=== PATIENT | female | born 1960 | race African-American/Black ===

== ENCOUNTER 2016-12-10 06:40 | Day surgery (SDC) | payer OTHER ==
[~2016-12-10] VITALS: Ht 170.2 cm; Wt 105.0 kg
[~2016-12-10 06:40] MED LIST: ALPR0.25 PO; ATRO0.05 EACH EYE; CARD120T4 PO; COZA100T PO; ESTR42.5V PV; FOLI5CAP PO; GLUCTAB PO; HYDR200T3 PO; LOVA1TAB47 PO; MEDR10 PO; METH2.5 PO; NEUR600T PO; NRSS SQ; PERC5TAB12 PO; PRED1%O EACH EYE; PROT40TA PO; PROZ40CA PO; SUCR1S PO; TIMO0.5S29 EACH EYE; TRAM100T19 PO; TYLE3 PO
[2016-12-10 07:00] VITALS: BP 150/88; PULSE 87; RESP 20; TEMP 98.7; O2SAT 98
[2016-12-10] MEDS ORDERED: TIMO0.5S30 EACH EYE (07:18)
[2016-12-10] MEDS ORDERED: TRAM50TA PO (07:18)
[2016-12-10] MEDS ORDERED: HYDR-3516 PO (07:18)
[2016-12-10] MEDS ORDERED: METH2.5T PO (07:18)
[2016-12-10] MEDS ORDERED: METF500T PO ×2 (07:18)
[2016-12-10] MEDS ORDERED: MEDR5TAB3 PO (07:18)
[2016-12-10] MEDS ORDERED: ALPR0.25 PO (07:18)
[2016-12-10] MEDS ORDERED: PRED20 PO (07:18)
[2016-12-10] MEDS ORDERED: LOVA20TA PO (07:18)
[2016-12-10] MEDS ORDERED: DORZ2SOL EACH EYE (07:18)
[2016-12-10] MEDS ORDERED: DILT-60 PO (07:18)
[2016-12-10] MEDS ORDERED: TRAV0.00 RIGHT EYE (07:18)
[2016-12-10] MEDS ORDERED: GABA600T PO (07:18)
[2016-12-10] MEDS ORDERED: ATRO1SOL11 EACH EYE (07:18)
[2016-12-10] MEDS ORDERED: CYCL1TAB29 PO (07:18)
[2016-12-10] MEDS ORDERED: ESTR0.1D3 T-DERMAL (07:18)
[2016-12-10] MEDS ORDERED: PANT40TA3 PO (07:18)
[2016-12-10] MEDS ORDERED: TYLETAB34 PO (07:18)
[2016-12-10] MEDS ORDERED: CENTTAB PO (07:18)
[2016-12-10] MEDS ORDERED: [UNRECOGNIZED DRUG - CODE] SL (07:18)
[2016-12-10] MEDS ORDERED: FOLI1TAB4 PO (07:18)
[2016-12-10] MEDS ORDERED: HYDR12.57 PO (07:18)
[2016-12-10] MEDS ORDERED: NOVORP2 SQ (07:18)
[2016-12-10] MEDS ORDERED: FLUO40CA PO (07:18)
[2016-12-10] MEDS ORDERED: BRIM0.155 EACH EYE (07:18)
[2016-12-10] MEDS ORDERED: ATEN50TA PO (07:18)
[2016-12-10] MEDS ORDERED: LOSA100T PO (07:18)
[2016-12-10] MEDS ORDERED: SULF10SU3 EACH EYE (07:18)
[2016-12-10 07:47] LABS: AUTOMATED NEUTROPHIL # 7.4 TH/MM3 (1.8-7.7); BASOPHIL # 0.1 TH/MM3 (0-0.2); BASOPHIL % 0.6 % (0.0-2.0); EOSINOPHIL # 0.1 TH/MM3 (0-0.4); EOSINOPHIL % 0.5 % (0.0-4.0); HEMATOCRIT 36.6 % (35.0-46.0); LYMPHOCYTE # 5.4 TH/MM3 (1.0-4.8); MEAN CELL VOLUME 87.4 FL (80.0-100.0); MEAN CORPUSCULAR HEMOGLOBIN 28.7 PG (27.0-34.0); MEAN CORPUSCULAR HGB CONC 32.9 % (32.0-36.0); MONO % 6.6 % (0.0-8.0); NEUT % 53.3 % (16.0-70.0); PLATELET COUNT 240 TH/MM3 (150-450); RED BLOOD COUNT 4.19 MIL/MM3 (4.00-5.30); RED CELL DISTRIBUTION WIDTH 15.1 % (11.6-17.2); WHITE BLOOD COUNT 13.8 TH/MM3 (4.0-11.0)
[2016-12-10 07:50] LABS: HEMO FLAGS AUTO DIFF
[2016-12-10] MEDS ORDERED: POVIDONE IODINE 5% (ANTISEPSIS KIT) 4 APPLICATIONS EACH NARE SCH (08:00)
[2016-12-10] MEDS ORDERED: VANCOMYCIN 1000 MG/NS 250 ML - implanted port/tunneled catheter IV SCH ×2 (08:00)
[2016-12-10] MEDS ORDERED: CHLORHEXIDINE GLUCONATE 2 % 1 PACK (2 CLOTHS) TOPICAL SCH (08:00)
[2016-12-10] MEDS ORDERED: SODIUM CHLORIDE 0.9% 1000 ML IV SCH (08:00)
[2016-12-10 08:04] LABS: APTT (PATIENT) 19.8 SEC (24.3-30.1); INTERNATIONAL NORMALIZED RATIO 0.9 RATIO; PROTHROMBIN TIME - PATIENT 10.4 SEC (9.8-11.6)
[2016-12-10] MEDS: ceFAZolin 2 GM PREMIX 50 ML - implanted port/tunneled catheter insertion IV SCH ×2 (08:24→09:44)
[2016-12-10 08:31] LABS: NEUTROPHIL # MANUAL DIFF 7.3 TH/MM3 (1.8-7.7); PLATELET ESTIMATE SMEAR NORMAL (NORMAL); PLATELET MORPHOLOGY NORMAL (NORMAL); POLYS (SEG NEUTROPHILS) 53 % (16-70); SCAN/DIFF FINAL DIFF MANUAL; WBC DIFF SAMPLE 100
[2016-12-10] MEDS ORDERED: MIDAZOLAM HCL 5 MG/5 ML VIAL ONE (08:44)
[2016-12-10] MEDS ORDERED: fentaNYL CITRATE 250 MCG/5 ML AMP ONE (08:44)
[2016-12-10] MEDS ORDERED: LIDOCAINE 1%/EPINEPHrine 1:100,000 SOLN 20 ML VIAL ONE (09:31)
--- NOTE | 2016-12-10 10:40 | PD.RAD ---
Post Procedure Progress Note Pre Procedure Diagnosis: (1) Iritis of both eyes Post Procedure Diagnosis: (1) Iritis of both eyes Procedure Date: Dec 10, 2016 Supervising Radiologist: Jigar Kaye Proceduralist/Assist: Matilde Gudino RT(R), Maryam Carey RT(R)() Anesthesia: Local, Conscious Sedation Plan of Activity Patient to Unit: ROPU Patient Condition: Good See PACS Report for procedural detail/treatment Central Venous Access Device Procedure 1 Right Internal Jugular Infusaport Placement single lumen Panamanian: 8 Jigar Kaye MD Dec 10, 2016 10:40
[2016-12-10 10:45] VITALS: BP 144/73; PULSE 83; RESP 16; TEMP 99.1; O2SAT 90
[2016-12-10 11:00] VITALS: BP 145/75; PULSE 85; RESP 18; O2SAT 97
[2016-12-10 11:30] VITALS: BP 126/71; PULSE 78; RESP 18; O2SAT 97
[2016-12-10 12:00] VITALS: BP 143/78; PULSE 81; RESP 18; O2SAT 98
--- NOTE | 2016-12-10 12:49 | RADRPT ---
EXAM DATE/TIME: 12/10/2016 09:50 [facility] COMPARISON: No previous studies available for comparison. INDICATIONS : Patient with chronic bilateral iritis in need of port for termite treater helper medication. MEDICAL HISTORY : Spondylosis of lumbosacral region Bilateral edema Diabetes HTN SURGICAL HISTORY : Left foot FX Bilateral knees Appendectomy Cholecystectomy Hysterectomy ENCOUNTER: Initial ACUITY: >1 year PAIN SCORE: FLUORO TIME: 4.8 minutes SEDATION TIME: 30 minutes ACCESS: Right internal jugular vein SEDATION: 1.) 5 mg midazolam (Versed) IV 2.) 250 mcg fentanyl (Sublimaze) IV Prophylactic antibiotics were administered with appropriate pre-procedure timing. Vancomycin within 2 hours of procedure, Ancef (or alternative) within 1 hour of procedure. DEVICE: 1. 8 [place] single lumen [id number] PROCEDURE : 1. Continuous pulse oximetry and EKG monitoring. 2. Intravenous conscious sedation. 3. Ultrasound guidance for venous access. 4. Fluoroscopic guided implantable central venous port placement. The patient was placed supine. The neck was prepped in sterile fashion. Full sterile technique was u sed, including cap, mask, sterile gloves and gown, and a large sterile sheet. Hand hygiene and 2% ch lorhexidine Betadine was utilized per protocol for cutaneous antisepsis with appropriate dry time for site. The skin and subcutaneous tissues were infiltrated with local anesthetic solution. Under direct ultrasound guidance, central venous access was accomplished in the targeted vessel. The ultrasound images depicting access guidance were stored and saved to PACS for permanent record. A s ubcutaneous pocket was created using blunt dissection. The port was introduced to the pocket. The c atheter tubing was fed through a subcutaneous tunnel to the venotomy site. The catheter tubing was c ut to a suitable length and then was introduced through a valved Peel-Away sheath and positioned with catheter tubing tip at the cavo-atrial junction level. The pocket incision was closed with subcutic ular Vicryl suture. Steri-Strips were applied. The port was flushed and locked with heparin solutio n per protocol. Sterile dressing was applied to the site. The patient tolerated the procedure well. Conscious sedation was performed with the prescribed dosages and duration as above. The patient autumn ated the procedure well and there were no complications. EKG and oximetry remained stable throughout the procedure. The patient was sent to post anesthesia recovery in stable condition. CONCLUSION: Uncomplicated ultrasound and fluoroscopic guided implanted central venous port catheter placement as described in detail above. An 8 [place] Power port was placed. Jigar Kaye MD on December 10, 2016 at 12:48 Board Certified Radiologist. This report was verified electronically.
[2016-12-10 13:00] VITALS: BP 149/79; PULSE 81; RESP 18; O2SAT 98
[2017-03-28] MEDS ORDERED: SITA50 PO (07:30)
[2017-03-28] MEDS ORDERED: INFL100P (07:32)
[2017-03-28] MEDS ORDERED: B-COINJ (07:34)
[2017-05-17] MEDS ORDERED: DILT360C12 PO (10:45)
[2017-05-17] MEDS ORDERED: CYAN1000P IM (10:45)
[2017-05-17] MEDS ORDERED: INFL100P IV (10:45)
[2017-05-17] MEDS ORDERED: HYDR25TA5 PO (10:45)
[2017-05-17] MEDS ORDERED: FOLI400T PO (10:45)
[2017-05-17] MEDS ORDERED: PRED10 PO (10:45)
[2017-05-17] MEDS ORDERED: ESTR0.1D3 T-DERMAL (10:45)
[2017-05-17] MEDS ORDERED: METH0.35 SQ (10:45)
[2017-05-17] MEDS ORDERED: MULTTAB67 PO (10:45)
== END 2016-12-10 13:10 | disposition home or self-care (01) ==
LOC: HROP 06:40 → HRIP 06:40 → HROP 13:10
PROVIDERS: ATTEND Internal Medicine Rheumatology
DX: H20.9 Unspecified iridocyclitis (principal); I10 Essential (primary) hypertension; E11.9 Type 2 diabetes mellitus without complications; R60.9 Edema, unspecified; M47.9 Spondylosis, unspecified; R79.1 Abnormal coagulation profile
CPT/HCPCS: 36561; 76942; 77001; 85007; 85027; 85610; 85730; 99152; 99153; J0690; J1642; J2250; J3010; J3370; J7030; J7050; C1788

== ENCOUNTER → 2016-12-13 | Outpatient (CLI) | payer OTHER ==
[~2016-12-13] MED LIST changes: +ATEN50TA PO; -ATRO0.05 EACH EYE; +ATRO1SOL11 EACH EYE; +B-COINJ; +BRIM0.155 EACH EYE; -CARD120T4 PO; +CENTTAB PO; -COZA100T PO; +CYAN1000P IM; +CYCL1TAB29 PO; +DILT-60 PO; +DILT360C12 PO; +DORZ2SOL EACH EYE; +ESTR0.1D3 T-DERMAL; -ESTR42.5V PV; +FLUO40CA PO; +FOLI1TAB4 PO; +FOLI400T PO; -FOLI5CAP PO; +GABA600T PO; -GLUCTAB PO; +HYDR-3516 PO; +HYDR12.57 PO; -HYDR200T3 PO; +HYDR25TA5 PO; +INFL100P; +INFL100P IV; +LOSA100T PO; -LOVA1TAB47 PO; +LOVA20TA PO; -MEDR10 PO; +MEDR5TAB3 PO; +METF500T PO; +METH0.35 SQ; -METH2.5 PO; +METH2.5T PO; +MULTTAB67 PO; -NEUR600T PO; +NOVORP2 SQ; -NRSS SQ; +PANT40TA3 PO; -PERC5TAB12 PO; -PRED1%O EACH EYE; +PRED10 PO; +PRED20 PO; -PROT40TA PO; -PROZ40CA PO; +SITA50 PO; -SUCR1S PO; +SULF10SU3 EACH EYE; -TIMO0.5S29 EACH EYE; +TIMO0.5S30 EACH EYE; -TRAM100T19 PO; +TRAM50TA PO; +TRAV0.00 RIGHT EYE; -TYLE3 PO; +TYLETAB34 PO; +[UNRECOGNIZED DRUG - CODE] SL
[2016-12-13 13:02] LABS: CHLORIDE 104 MEQ/L (98-107); POTASSIUM 4.4 MEQ/L (3.5-5.1); SODIUM (NA) 142 MEQ/L (136-145)
[2016-12-13 13:06] LABS: ANION GAP 8 MEQ/L (5-15); BICARBONATE 30.4 MEQ/L (21.0-32.0)
[2016-12-13 13:07] LABS: BLOOD UREA NITROGEN 12 MG/DL (7-18)
[2016-12-13 13:09] LABS: ALT (GPT) 48 U/L (10-53)
[2016-12-13 13:10] LABS: AST (GOT) 14 U/L (15-37); GLOMERULAR FILTRATION RATE 81 ML/MIN (>89)
[2016-12-13 13:11] LABS: TOTAL BILIRUBIN ADULT 0.3 MG/DL (0.2-1.0)
[2016-12-13 13:12] LABS: ALKALINE PHOSPHATASE 76 U/L (45-117)
[2016-12-13 15:35] LABS: HEMATOCRIT 35.4 % (35.0-46.0); MEAN CELL VOLUME 88.5 FL (80.0-100.0); MEAN CORPUSCULAR HEMOGLOBIN 28.1 PG (27.0-34.0); MEAN CORPUSCULAR HGB CONC 31.7 % (32.0-36.0); PLATELET COUNT 178 TH/MM3 (150-450); RED BLOOD COUNT 3.99 MIL/MM3 (4.00-5.30); RED CELL DISTRIBUTION WIDTH 15.2 % (11.6-17.2); REVIEW FLAG FINAL; WHITE BLOOD COUNT 11.7 TH/MM3 (4.0-11.0)
[2016-12-13 16:01] LABS: WESTERGREN SEDIMENTATION RATE 11 mm/hr (0-30)
== END ==
LOC: PLAB 10:39
PROVIDERS: ATTEND Internal Medicine Rheumatology
DX: H44.113 Panuveitis, bilateral (principal); H20.13 Chronic iridocyclitis, bilateral
CPT/HCPCS: 36415; 80053; 85027; 85652

== ENCOUNTER → 2017-01-21 | Outpatient (CLI) | payer OTHER ==
[2017-01-21 07:42] LABS: AUTOMATED NEUTROPHIL # 7.2 TH/MM3 (1.8-7.7); BASOPHIL % 0.4 % (0.0-2.0); EOSINOPHIL % 0.1 % (0.0-4.0); HEMATOCRIT 37.2 % (35.0-46.0); HEMO FLAGS DIFF FINAL; LYMPHOCYTE # 3.3 TH/MM3 (1.0-4.8); MEAN CELL VOLUME 87.5 FL (80.0-100.0); MEAN CORPUSCULAR HEMOGLOBIN 28.2 PG (27.0-34.0); MEAN CORPUSCULAR HGB CONC 32.2 % (32.0-36.0); MONO % 7.6 % (0.0-8.0); NEUT % 62.9 % (16.0-70.0); PLATELET COUNT 220 TH/MM3 (150-450); RED BLOOD COUNT 4.25 MIL/MM3 (4.00-5.30); RED CELL DISTRIBUTION WIDTH 14.5 % (11.6-17.2); WHITE BLOOD COUNT 11.5 TH/MM3 (4.0-11.0)
[2017-01-21 08:10] LABS: ALKALINE PHOSPHATASE 70 U/L (45-117); ALT (GPT) 41 U/L (10-53); ANION GAP 8 MEQ/L (5-15); AST (GOT) 14 U/L (15-37); BICARBONATE 31.4 MEQ/L (21.0-32.0); BLOOD UREA NITROGEN 11 MG/DL (7-18); CHLORIDE 102 MEQ/L (98-107); GLOMERULAR FILTRATION RATE 76 ML/MIN (>89); GLUCOSE,FASTING 195 MG/DL (74-99); POTASSIUM 4.3 MEQ/L (3.5-5.1); SODIUM (NA) 141 MEQ/L (136-145); TOTAL BILIRUBIN ADULT 0.2 MG/DL (0.2-1.0)
[2017-01-21 08:17] LABS: WESTERGREN SEDIMENTATION RATE 13 mm/hr (0-30)
== END ==
LOC: CLAB 06:48
PROVIDERS: ATTEND Ophthalmology
DX: H44.113 Panuveitis, bilateral (principal); H20.13 Chronic iridocyclitis, bilateral
CPT/HCPCS: 36415; 80053; 85025; 85652

== ENCOUNTER → 2017-02-26 | Outpatient (CLI) | payer OTHER ==
[2017-02-26 16:11] LABS: AUTOMATED NEUTROPHIL # 7.6 TH/MM3 (1.8-7.7); BASOPHIL # 0.1 TH/MM3 (0-0.2); BASOPHIL % 0.5 % (0.0-2.0); EOSINOPHIL % 0.1 % (0.0-4.0); HEMATOCRIT 38.9 % (35.0-46.0); HEMO FLAGS DIFF FINAL; LYMPH % 27.1 % (9.0-44.0); LYMPHOCYTE # 3.2 TH/MM3 (1.0-4.8); MEAN CELL VOLUME 86.3 FL (80.0-100.0); MEAN CORPUSCULAR HEMOGLOBIN 26.7 PG (27.0-34.0); NEUT % 64.3 % (16.0-70.0); PLATELET COUNT 246 TH/MM3 (150-450); RED BLOOD COUNT 4.51 MIL/MM3 (4.00-5.30); RED CELL DISTRIBUTION WIDTH 14.4 % (11.6-17.2); WHITE BLOOD COUNT 11.7 TH/MM3 (4.0-11.0)
== END ==
LOC: CLAB 15:49
PROVIDERS: ATTEND Optometrist Occupational Vision
DX: H25.811 Combined forms of age-related cataract, right eye (principal)
CPT/HCPCS: 36415; 85025

== ENCOUNTER → 2017-03-04 | Outpatient (CLI) | payer OTHER ==
[2017-03-04 08:34] LABS: BASOPHIL # 0.1 TH/MM3 (0-0.2); BASOPHIL % 1.4 % (0.0-2.0); EOSINOPHIL # 0.1 TH/MM3 (0-0.4); EOSINOPHIL % 0.8 % (0.0-4.0); HEMATOCRIT 36.7 % (35.0-46.0); HEMO FLAGS DIFF FINAL; LYMPH % 50.5 % (9.0-44.0); LYMPHOCYTE # 3.9 TH/MM3 (1.0-4.8); MEAN CELL VOLUME 85.8 FL (80.0-100.0); MEAN CORPUSCULAR HEMOGLOBIN 27.1 PG (27.0-34.0); MEAN CORPUSCULAR HGB CONC 31.6 % (32.0-36.0); MONO % 9.4 % (0.0-8.0); NEUT % 37.9 % (16.0-70.0); PLATELET COUNT 213 TH/MM3 (150-450); RED BLOOD COUNT 4.28 MIL/MM3 (4.00-5.30); RED CELL DISTRIBUTION WIDTH 14.2 % (11.6-17.2); WHITE BLOOD COUNT 7.8 TH/MM3 (4.0-11.0)
[2017-03-04 09:02] LABS: ANION GAP 6 MEQ/L (5-15); AST (GOT) 16 U/L (15-37); BICARBONATE 31.3 MEQ/L (21.0-32.0); BLOOD UREA NITROGEN 7 MG/DL (7-18); CHLORIDE 107 MEQ/L (98-107); GLOMERULAR FILTRATION RATE 109 ML/MIN (>89); GLUCOSE,FASTING 113 MG/DL (74-99); POTASSIUM 3.8 MEQ/L (3.5-5.1); SODIUM (NA) 144 MEQ/L (136-145)
[2017-03-04 09:27] LABS: ALKALINE PHOSPHATASE 61 U/L (45-117); ALT (GPT) 29 U/L (10-53); HDL CHOLESTEROL 54.4 MG/DL (40.0-60.0); LDL CHOLESTEROL 75 MG/DL (0-99); TOTAL BILIRUBIN ADULT 0.3 MG/DL (0.2-1.0)
== END ==
LOC: CLAB 08:03
PROVIDERS: ATTEND Family Medicine
DX: E78.2 Mixed hyperlipidemia (principal); M32.8 Other forms of systemic lupus erythematosus; R53.83 Other fatigue
CPT/HCPCS: 36415; 80053; 80061; 82607; 82746; 84443; 85025

== ENCOUNTER → 2017-03-28 | Day surgery (SDC) | payer OTHER ==
[~2017-03-28] VITALS: Ht 170.2 cm; Wt 109.0 kg
[~2017-03-28] MED LIST changes: +CYCLOPENTOLATE HCL 1% OPHT SOLN 2 ML BTL ONE; +FLURBIPROFEN 0.03% OPHT SOLN 2.5 ML BTL ONE; +HYALURONIDASE/LIDOCAINE/EPINEPHRINE/BUPIVACAINE 6 ML SYR ONE; +LIDOCAINE HCL 1% PF 30 ML VIAL ONE; +PHENYLEPHRINE HCL 10% OPTH SOLN 5 ML BTL ONE; +PROPARACAINE HCL 0.5% OPHT SOLN 15 ML BTL ONE; +PROPOFOL 200 MG/20 ML AMP ONE; +SODIUM CHLORID 0.9% 500 ML INJ 500 ML ONE; +TROPICAMIDE 1% OPHT SOLN 15 ML BTL ONE
[2017-03-28 06:55] VITALS: BP 138/72; PULSE 87; RESP 18; TEMP 98.7; O2SAT 100
[2017-03-28 07:00] VITALS: PULSE 87
[2017-03-28 08:00] VITALS: PULSE 82
[2017-03-28] MEDS: TOBRAMYCIN/DEXAMETHASONE OPTH OINT 3.5 GM TUBE ONE ×2 (08:59→09:07)
[2017-03-28 09:15] VITALS: TEMP 98.8
[2017-03-28 09:30] VITALS: BP 105/47; PULSE 80; RESP 16; O2SAT 95
--- NOTE | 2017-03-30 19:31 | MP ---
cc: PHOENIX ABBASI M.D. [facility] #[id number] DATE OF SURGERY 03/28/17 POSTOPERATIVE DIAGNOSIS: Visually significant cataract right eye. OPERATION: Phacoemulsification with posterior chamber lens implantation, right eye. SURGEON: Phoenix Abbasi MD ANESTHESIA: Retrobulbar with MAC. COMPLICATIONS: None. PROCEDURE: After informed consent was obtained, the patient was brought into the operative suite and placed on appropriate monitors by the Anesthesia Service. The patient had received a prior retrobulbar injection of local anesthetic by the Anesthesia Service in the holding area. The patient's operative eye was then prepped and draped in the usual sterile fashion. A wire lid speculum was placed. A paracentesis incision was made in the peripheral cornea with a 1 mm roberto keratome. The anterior chamber was filled with viscoelastic. The anterior chamber was then entered through a stepped, clear corneal incision using a sharp 3 mm roberto keratome. A circular tear capsulorrhexis was then made with a bent needle cystitome. Following hydrodissection of the lens nucleus with balanced saline, phaco-emulsification of the nucleus was performed using a modified chopping technique. The remaining cortex was removed with irrigation/aspiration. The prior two procedures were both performed using the handpieces of the [employer] phaco unit. The capsular bag was then filled with viscoelastic. The intraocular lens was then injected into the capsular bag and positioned. The type of intraocular lens and its power can be found elsewhere in this chart. The remaining viscoelastic was then removed from the anterior chamber with the IA handpiece. The anterior chamber was reformed with balanced saline. The wound was then closed securely with stromal hydration. It was found to be watertight to an intraocular pressure of at least 30 mmHg by palpation. A small amount of balanced salt solution was then removed through the paracentesis site and the intraocular pressure at the end of the case was approximately 20 by palpation. All drapes were then removed. TobraDex ointment was then placed in the eye, which was closed beneath a semi-pressure patch dressing. The patient tolerated this procedure well and left the operating room awake and alert. The patient is to follow-up in my office in the morning. MD ESTEPHANIA Mccormack/ /10:03 AM /7:30 PM
== END | disposition home or self-care (01) ==
LOC: PHSDC 06:35
PROVIDERS: ATTEND Optometrist Occupational Vision
DX: H25.811 Combined forms of age-related cataract, right eye (principal); I10 Essential (primary) hypertension; E11.9 Type 2 diabetes mellitus without complications
CPT/HCPCS: 00142; 66984; 82948; J7040; V2632

== ENCOUNTER → 2017-04-05 | Outpatient (CLI) | payer OTHER ==
[~2017-04-05] MED LIST changes: -CYCL1TAB29 PO; -CYCLOPENTOLATE HCL 1% OPHT SOLN 2 ML BTL ONE; -FLURBIPROFEN 0.03% OPHT SOLN 2.5 ML BTL ONE; -HYALURONIDASE/LIDOCAINE/EPINEPHRINE/BUPIVACAINE 6 ML SYR ONE; -LIDOCAINE HCL 1% PF 30 ML VIAL ONE; -METF500T PO; -PHENYLEPHRINE HCL 10% OPTH SOLN 5 ML BTL ONE; -PROPARACAINE HCL 0.5% OPHT SOLN 15 ML BTL ONE; -PROPOFOL 200 MG/20 ML AMP ONE; -SODIUM CHLORID 0.9% 500 ML INJ 500 ML ONE; -TROPICAMIDE 1% OPHT SOLN 15 ML BTL ONE
[2017-04-05 09:57] LABS: AUTOMATED NEUTROPHIL # 7.8 TH/MM3 (1.8-7.7); BASOPHIL # 0.1 TH/MM3 (0-0.2); BASOPHIL % 0.6 % (0.0-2.0); HEMATOCRIT 33.3 % (35.0-46.0); HEMO FLAGS DIFF FINAL; LYMPH % 17.4 % (9.0-44.0); LYMPHOCYTE # 1.8 TH/MM3 (1.0-4.8); MEAN CELL VOLUME 81.8 FL (80.0-100.0); MEAN CORPUSCULAR HEMOGLOBIN 27.1 PG (27.0-34.0); MEAN CORPUSCULAR HGB CONC 33.2 % (32.0-36.0); MONO % 7.4 % (0.0-8.0); NEUT % 74.6 % (16.0-70.0); PLATELET COUNT 288 TH/MM3 (150-450); RED BLOOD COUNT 4.07 MIL/MM3 (4.00-5.30); RED CELL DISTRIBUTION WIDTH 14.1 % (11.6-17.2); WHITE BLOOD COUNT 10.5 TH/MM3 (4.0-11.0)
[2017-04-05 10:28] LABS: ALKALINE PHOSPHATASE 68 U/L (45-117); ALT (GPT) 23 U/L (10-53); ANION GAP 7 MEQ/L (5-15); AST (GOT) 15 U/L (15-37); BICARBONATE 26.9 MEQ/L (21.0-32.0); BLOOD UREA NITROGEN 7 MG/DL (7-18); CHLORIDE 107 MEQ/L (98-107); GLOMERULAR FILTRATION RATE 99 ML/MIN (>89); GLUCOSE,FASTING 170 MG/DL (74-99); SODIUM (NA) 141 MEQ/L (136-145); TOTAL BILIRUBIN ADULT 0.3 MG/DL (0.2-1.0)
[2017-04-05 10:29] LABS: CREATINE KINASE 81 U/L (26-192)
== END ==
LOC: CLAB 09:04
PROVIDERS: ATTEND Internal Medicine Rheumatology
DX: H20.13 Chronic iridocyclitis, bilateral (principal)
CPT/HCPCS: 36415; 80053; 82550; 85025; 85652

== ENCOUNTER → 2017-05-17 | Outpatient (CLI) | payer OTHER ==
[2017-05-17 10:21] LABS: AUTOMATED NEUTROPHIL # 10.2 TH/MM3 (1.8-7.7); BASOPHIL # 0.1 TH/MM3 (0-0.2); BASOPHIL % 0.7 % (0.0-2.0); EOSINOPHIL % 0.3 % (0.0-4.0); HEMATOCRIT 35.4 % (35.0-46.0); HEMO FLAGS DIFF FINAL; LYMPHOCYTE # 1.5 TH/MM3 (1.0-4.8); MEAN CELL VOLUME 80.8 FL (80.0-100.0); MEAN CORPUSCULAR HEMOGLOBIN 25.2 PG (27.0-34.0); MEAN CORPUSCULAR HGB CONC 31.2 % (32.0-36.0); MONO % 6.8 % (0.0-8.0); NEUT % 80.2 % (16.0-70.0); PLATELET COUNT 193 TH/MM3 (150-450); RED BLOOD COUNT 4.39 MIL/MM3 (4.00-5.30); RED CELL DISTRIBUTION WIDTH 15.9 % (11.6-17.2); WHITE BLOOD COUNT 12.7 TH/MM3 (4.0-11.0)
== END ==
LOC: CLAB 09:31
PROVIDERS: ATTEND Ophthalmology
DX: H44.113 Panuveitis, bilateral (principal)
CPT/HCPCS: 82565; 82607; 82947; 84450; 84460; 84520; 85025

== ENCOUNTER → 2017-05-30 | Day surgery (SDC) | payer OTHER ==
[~2017-05-30] VITALS: Ht 170.2 cm; Wt 113.5 kg
[~2017-05-30] MED LIST changes: -B-COINJ; -CENTTAB PO; +CHLORHEXIDINE GLUCONATE 2 % 1 PACK (2 CLOTHS) TOPICAL PRN; -DILT-60 PO; -FOLI1TAB4 PO; +HYALURONIDASE/LIDOCAINE/EPINEPHRINE/BUPIVACAINE 6 ML SYR LEFT EYE ONE; -HYDR-3516 PO; -HYDR12.57 PO; -INFL100P; +INSULIN HUMAN REGULAR 1,000 UNITS/10 ML VIAL SQ PRN; +LACTATED RINGER'S 1000 ML IV PRN; +LIDOCAINE HCL 1% PF 30 ML VIAL ONE; -METH2.5T PO; +METOPROLOL TARTRATE 25 MG TAB PO PRN; +POVIDONE IODINE 5% (ANTISEPSIS KIT) 4 APPLICATIONS EACH NARE PRN; -PRED20 PO; +PROPARACAINE HCL 0.5% OPHT SOLN 15 ML BTL LEFT EYE ONE; +PROPOFOL 200 MG/20 ML AMP ONE; +SODIUM CHLORID 0.9% 500 ML IV PRN; +TOBRAMYCIN/DEXAMETHASONE OPTH OINT 3.5 GM TUBE ONE
[2017-05-30 07:00] VITALS: BP 151/76; PULSE 76; RESP 16; TEMP 98.8; O2SAT 99
[2017-05-30 07:05] VITALS: PULSE 76
[2017-05-30] MEDS: TROPICAMIDE 1% OPHT SOLN 15 ML BTL LEFT EYE SCH ×4 (07:05→07:20)
[2017-05-30] MEDS: FLURBIPROFEN 0.03% OPHT SOLN 2.5 ML BTL LEFT EYE SCH ×4 (07:05→07:20)
[2017-05-30] MEDS: PHENYLEPHRINE HCL 10% OPTH SOLN 5 ML BTL LEFT EYE SCH ×4 (07:05→07:20)
[2017-05-30] MEDS: CYCLOPENTOLATE HCL 1% OPHT SOLN 2 ML BTL LEFT EYE SCH ×4 (07:05→07:20)
[2017-05-30 07:39] VITALS: PULSE 74
[2017-05-30 09:00] VITALS: TEMP 98.6
[2017-05-30 09:25] VITALS: BP 111/63; PULSE 72; RESP 16; O2SAT 96
--- NOTE | 2017-05-31 16:14 | MP ---
cc: PHOENIX ABBASI M.D. DATE OF SURGERY: 05/30/2017. [facility] NUMBER: [id number] PREOPERATIVE DIAGNOSIS Visually significant cataract left eye. POSTOPERATIVE DIAGNOSIS Visually significant cataract left eye. OPERATION Phacoemulsification with posterior chamber lens implantation, left eye. SURGEON Phoenix Abbasi MD ANESTHESIA Retrobulbar with MAC. COMPLICATIONS None DESCRIPTION OF THE PROCEDURE IN DETAIL: After informed consent was obtained, the patient was brought into the operative suite and placed on appropriate monitors by the Anesthesia Service. The patient had received a prior retrobulbar injection of local anesthetic by the Anesthesia Service in the holding area. The patient's operative eye was then prepped and draped in the usual sterile fashion. A wire lid speculum was placed. A paracentesis incision was made in the peripheral cornea with a 1 mm roberto keratome. The anterior chamber was filled with viscoelastic. The anterior chamber was then entered through a stepped, clear corneal incision using a sharp 3 mm roberto keratome. A circular tear capsulorrhexis was then made with a bent needle cystitome. Following hydrodissection of the lens nucleus with balanced saline, phacoemulsification of the nucleus was performed using a modified chopping technique. The remaining cortex was removed with irrigation/aspiration. The prior two procedures were both performed using the handpieces of the [employer] phaco unit. The capsular bag was then filled with viscoelastic. The intraocular lens was then injected into the capsular bag and positioned. The type of intraocular lens and its power can be found elsewhere in this chart. The remaining viscoelastic was then removed from the anterior chamber with the IA handpiece. The anterior chamber was reformed with balanced saline. The wound was then closed securely with stromal hydration. It was found to be watertight to an intraocular pressure of at least 30 mmHg by palpation. A small amount of balanced salt solution was then removed through the paracentesis site and the intraocular pressure at the end of the case was approximately 20 by palpation. All drapes were then removed. TobraDex ointment was then placed in the eye, which was closed beneath a semi-pressure patch dressing. The patient tolerated this procedure well and left the operating room awake and alert. The patient is to follow-up in my office in the morning. MD ESTEPHANIA Mccormack/JOLEEN /10:11 AM /4:13 PM
== END | disposition home or self-care (01) ==
LOC: PHSDC 06:22
PROVIDERS: ATTEND Optometrist Occupational Vision
DX: H25.812 Combined forms of age-related cataract, left eye (principal); E11.9 Type 2 diabetes mellitus without complications; Z79.4 Long term (current) use of insulin
CPT/HCPCS: 00142; 66984; 82948; J1642; J7040; V2632

== ENCOUNTER → 2017-11-28 | Outpatient (CLI) | payer OTHER ==
[~2017-11-28] MED LIST changes: -CHLORHEXIDINE GLUCONATE 2 % 1 PACK (2 CLOTHS) TOPICAL PRN; -HYALURONIDASE/LIDOCAINE/EPINEPHRINE/BUPIVACAINE 6 ML SYR LEFT EYE ONE; -INSULIN HUMAN REGULAR 1,000 UNITS/10 ML VIAL SQ PRN; -LACTATED RINGER'S 1000 ML IV PRN; -LIDOCAINE HCL 1% PF 30 ML VIAL ONE; -METOPROLOL TARTRATE 25 MG TAB PO PRN; -POVIDONE IODINE 5% (ANTISEPSIS KIT) 4 APPLICATIONS EACH NARE PRN; -PROPARACAINE HCL 0.5% OPHT SOLN 15 ML BTL LEFT EYE ONE; -PROPOFOL 200 MG/20 ML AMP ONE; -SODIUM CHLORID 0.9% 500 ML IV PRN; -TOBRAMYCIN/DEXAMETHASONE OPTH OINT 3.5 GM TUBE ONE
[2017-11-28 08:14] LABS: HEMATOCRIT 37.2 % (35.0-46.0); HEMOGLOBIN 11.8 GM/DL (11.6-15.3); MEAN CELL VOLUME 83.3 FL (80.0-100.0); MEAN CORPUSCULAR HEMOGLOBIN 26.4 PG (27.0-34.0); MEAN CORPUSCULAR HGB CONC 31.7 % (32.0-36.0); MEAN PLATELET VOLUME 7.9 FL (7.0-11.0); PLATELET COUNT 239 TH/MM3 (150-450); RED BLOOD COUNT 4.46 MIL/MM3 (4.00-5.30); WHITE BLOOD COUNT 6.8 TH/MM3 (4.0-11.0)
[2017-11-28 08:39] LABS: ALBUMIN 3.8 GM/DL (3.4-5.0); ALT (GPT) 24 U/L (10-53); AST (GOT) 20 U/L (15-37); BICARBONATE 28.9 MEQ/L (21.0-32.0); BLOOD UREA NITROGEN 10 MG/DL (7-18); CALCIUM 9.2 MG/DL (8.5-10.1); CHLORIDE 107 MEQ/L (98-107); CREATININE 0.81 MG/DL (0.50-1.00); GLOMERULAR FILTRATION RATE 89 ML/MIN (>89); GLUCOSE,FASTING 174 MG/DL (74-99); SODIUM (NA) 142 MEQ/L (136-145)
[2017-11-28 08:42] LABS: ALKALINE PHOSPHATASE 81 U/L (45-117); TOTAL BILIRUBIN ADULT 0.2 MG/DL (0.2-1.0); TOTAL PROTEIN 7.3 GM/DL (6.4-8.2)
[2017-11-28 08:51] LABS: WESTERGREN SEDIMENTATION RATE 9 mm/hr (0-30)
[2017-11-28 11:44] LABS: C-REACTIVE PROTEIN 0.45 MG/DL (0.00-0.30)
== END ==
LOC: CLAB 07:52
PROVIDERS: ATTEND Internal Medicine Rheumatology
DX: H20.13 Chronic iridocyclitis, bilateral (principal)
CPT/HCPCS: 36415; 80053; 82550; 85027; 85652; 86140

== ENCOUNTER 2018-01-01 06:42 | Emergency (ER) | payer OTHER ==
[2018-01-01] VITALS (8 sets, daily range): BP systolic 102–151; BP diastolic 51–65; PULSE 104–115; RESP 14–18; TEMP 101–102.9; O2SAT 94–96
[~2018-01-01] VITALS: Ht 170.2 cm; Wt 98.4 kg
[2018-01-01] MEDS ORDERED: SODIUM CHLOR 0.9% 1000 ML INJ 1,000 ML IV SCH (07:27)
--- NOTE | 2018-01-01 07:29 | PD ---
HPI Chief Complaint: Abdominal Pain Time Seen by Provider: 07:27 Travel History International Travel<30 days: No Contact w/Intl Traveler<30days: No Traveled to known affect area: No History of Present Illness HPI 57-year-old female patient with history of rheumatoid arthritis, diabetes, hypertension, presents to the ER today with 2 days of lower abdominal pains with nausea, vomiting, and diarrhea. She has had some cough and cold symptoms as well, states that her may have had some similar symptoms. She denies any fevers or any other issues. Abdominal pains as stated to be a 9 out of 10 currently. She does not know any exacerbating alleviating factors. Modifying Factors: None Associated Signs & Symptoms: Lower abdominal pains, nausea, vomiting, diarrhea Risk Factors: Possible sick contact PFS Past Medical History Arthritis: Yes Autoimmune Disease: Yes Blood Disorders: No Depression: Yes Cancer: No Cardiovascular Problems: Yes (HTN,CHOLEST) High Cholesterol: Yes Diabetes: Yes (INSULIN) Patient Takes Glucophage: No Diminished Hearing: No Endocrine: Yes Gastrointestinal Disorders: Yes (COLITIS, DIVERTICULOSIS, GERD, IBS) Genitourinary: No Hiatal Hernia: No Hypertension: Yes Immune Disorder: No Implanted Vascular Access Dvce: Yes Musculoskeletal: Yes (MYALGIA) Neurologic: No Psychiatric: Yes (ADJUSTMENT DISORDER WITH DEPRESSED MOOD, ANXIETY) Reproductive: No Respiratory: No Immunizations Current: Yes Influenza Vaccination: Yes ?: Not Tubal Ligation: Yes Past Surgical History Abdominal Surgery: Yes (CHOLECYSTECTOMY, APPY) AICD: No Appendectomy: Yes Body Medical Devices: RIGHT CHEST PORT, TITANIUM CAGE Cholecystectomy: Yes Gynecologic Surgery: Yes (HYSTERECTOMY, TUBAL LIGATION) Hysterectomy: Yes Joint Replacement: No Oral Surgery: Yes (TONSILLECTOMY) Pacemaker: No Tonsillectomy: Yes Other Surgery: Yes (LFT FOOT FX, BILATERAL KNEES) Social History Alcohol Use: No Tobacco Use: No Substance Use: No Allergies-Medications (Allergen,Severity, Reaction): Coded Allergies: aspirin (Verified Allergy, Severe, Anaphylaxis, 01/01/18) daptomycin (Verified Allergy, Severe, Anaphylaxis, 01/01/18) diclofenac (Verified Allergy, Severe, Anaphylaxis, 01/01/18) etodolac (Verified Allergy, Severe, Anaphylaxis, 01/01/18) flurbiprofen (Verified Allergy, Severe, Anaphylaxis, 01/01/18) ibuprofen (Verified Allergy, Severe, Anaphylaxis, 01/01/18) indomethacin (Verified Allergy, Severe, Anaphylaxis, 01/01/18) ketoprofen (Verified Allergy, Severe, Anaphylaxis, 01/01/18) ketorolac (Verified Allergy, Severe, Anaphylaxis, 01/01/18) naproxen (Verified Allergy, Severe, Anaphylaxis, 01/01/18) oxaprozin (Verified Allergy, Severe, Anaphylaxis, 01/01/18) lisinopril (Verified Adverse Reaction, Severe, Cough, 01/01/18) *MDRO Multi-Drug Resistant Organism (Verified Adverse Reaction, Unknown, MRSA, 01/01/18) MRSA (foot wound) - 04/13/08, 07/19/08 Reported Meds & Prescriptions Reported Meds & Active Scripts Active Reported Cyanocobalamin Inj (Cyanocobalamin) 1,000 Mcg/Ml Inj 1,000 Mcg IM Q30D Remicade Inj (Infliximab) 100 Mg Inj 570 Mg IV [id number] Rasuvo (Methotrexate (Antirheumatic)) 20 Mg/0.4 Ml Inj 25 Mg SQ SATURDAY Hydrochlorothiazide 25 Mg Tab 25 Mg PO DAILY Folic Acid 400 Mcg Tab 1 Mg PO DAILY Estradiol Patch 168 HR (Estradiol) 0.1 Mg/24 Hr Patch 1 Patch T-DERMAL Q7D Remove old patch and discard when new patch being placed. Diltiazem CD 24 HR 360 Mg Capcr 360 Mg PO DAILY Multiple Vitamin 1 Tab 1 Tab PO DAILY Januvia (Sitagliptin Phosphate) 50 Mg Tab 50 Mg PO DAILY Travatan Z Opth Drops (Travoprost) 0.004 % Soln 1 Drop RIGHT EYE HS Tramadol (Tramadol HCl) 50 Mg Tab 50 Mg PO TID PRN Timolol Opth Drops 0.5 % Soln 1 Drop EACH EYE BID Pantoprazole (Pantoprazole Sodium) 40 Mg Tab 40 Mg PO DAILY Oscimin (Hyoscyamine Sulfate) 0.125 Mg Sub 1 Tab SL TID PRN Novolin R Inj (Insulin Human Regular) 1,000 Unit/10 Ml Vial 0 SQ DIRECTED Sliding Scale As Directed. Medroxyprogesterone Acetate 5 Mg Tab 5 Mg PO DAILY Start day 21 Lovastatin 20 Mg Tab 20 Mg PO HS Losartan (Losartan Potassium) 100 Mg Tab 100 Mg PO DAILY Gabapentin 600 Mg Tab 600 Mg PO TID Fluoxetine (Fluoxetine HCl) 40 Mg Cap 40 Cap PO DAILY Dorzolamide Opth Drops (Dorzolamide HCl) 2% Soln 1 Drop EACH EYE BID Brimonidine Opth Drops (Brimonidine Tartrate) 0.15% Soln 1 Drop EACH EYE BID Atropine Opth Drops 1% Soln 1 Drop EACH EYE BID Atenolol 50 Mg Tab 50 Mg PO BID Alprazolam 0.25 Mg Tab 0.25 Mg PO TID PRN Tylenol-Codeine #3 (Acetaminophen-Codeine) 300-30 mg Tab 1-2 Tab PO TID PRN Review of Systems Except as stated in HPI: all other systems reviewed are Neg Physical Exam Narrative GENERAL: Well-developed middle age -[place] female patient currently in moderate distress. Awake and oriented 3. SKIN: Focused skin assessment warm/dry. HEAD: Atraumatic. Normocephalic. EYES: Pupils equal and round. No scleral icterus. No injection or drainage. ENT: No nasal bleeding or discharge. Mucous membranes pink and moist. NECK: Trachea midline. No JVD. Supple. Lower abdominal tenderness without guarding or rebound CARDIOVASCULAR: Regular rate and rhythm. No murmur appreciated. RESPIRATORY: No accessory muscle use. Clear to auscultation. Breath sounds equal bilaterally. GASTROINTESTINAL: Abdomen soft, non-tender, nondistended. Hepatic and splenic margins not palpable. MUSCULOSKELETAL: No obvious deformities. No clubbing. No cyanosis. No edema. NEUROLOGICAL: Awake and alert. No obvious cranial nerve deficits. Motor grossly within normal limits. Normal speech. PSYCHIATRIC: Appropriate mood and affect; insight and judgment normal. Data Data Last Documented VS Vital Signs Date Time Temp Pulse Resp B/P (MAP) Pulse Ox O2 Delivery O2 Flow Rate FiO2 01/01/18 09:58 102.4 01/01/18 09:25 114 18 95 Room Air Orders Orders Complete Blood Count With Diff (01/01/18 07:27) Comprehensive Metabolic Panel (01/01/18 07:27) Lipase (01/01/18 07:27) Urinalysis - C+S If Indicated (01/01/18 07:27) Iv Access Insert/Monitor (01/01/18 07:27) Ecg Monitoring (01/01/18 07:27) Oximetry (01/01/18 07:27) Ondansetron Inj (Zofran Inj) (01/01/18 07:30) Sodium Chlor 0.9% 1000 Ml Inj (Ns 1000 M (01/01/18 07:27) Sodium Chloride 0.9% Flush (Ns Flush) (01/01/18 07:30) Dicyclomine Inj (Bentyl Inj) (01/01/18 07:30) Influenzae A/B Antigen (01/01/18 07:30) Blood Culture (01/01/18 07:33) Lactic Acid Sepsis Protocol (01/01/18 07:33) Urine Culture (01/01/18 07:35) Ct Abd/Pel W Iv Contrast(Rout) (01/01/18 08:39) Acetaminophen (Tylenol) (01/01/18 08:45) Iohexol 350 Inj (Omnipaque 350 Inj) (01/01/18 09:17) Ed Discharge Order (01/01/18 10:00) Labs Laboratory Tests Test 01/01/18 07:35 01/01/18 08:00 Urine Collection Type CLEAN CATCH Urine Color YELLOW Urine Turbidity SLIGHT Urine pH 8.0 Urine Specific [place] 1.024 Urine Protein NEG mg/dL Urine Glucose (UA) NEG mg/dL Urine Ketones 80 OR GREATER mg/dL Urine Occult Blood TRACE Urine Nitrite NEG Urine Bilirubin NEG Urine Leukocyte Esterase NEG Urine WBC 0-2 /hpf Urine Squamous Epithelial Cells > 8 /hpf Urine Amorphous Sediment MOD Urine Bacteria MOD /hpf Microscopic Urinalysis Comment CULTURE INDICATED Urine Collection Time 0735 White Blood Count 7.4 TH/MM3 Red Blood Count 4.60 MIL/MM3 Hemoglobin 11.9 GM/DL Hematocrit 37.7 % Mean Corpuscular Volume 81.9 FL Mean Corpuscular Hemoglobin 25.8 PG Mean Corpuscular Hemoglobin Concent 31.5 % Red Cell Distribution Width 15.6 % Platelet Count 219 TH/MM3 Mean Platelet Volume 7.8 FL CBC Comment AUTO DIFF Differential Total Cells Counted 100 Neutrophils % (Manual) 68 % Band Neutrophils % 1 % Lymphocytes % 15 % Monocytes % 16 % Neutrophils # (Manual) 5.1 TH/MM3 Differential Comment FINAL DIFF MANUAL Platelet Estimate NORMAL Platelet Morphology Comment NORMAL Blood Urea Nitrogen 8 MG/DL Creatinine 0.69 MG/DL Random Glucose 109 MG/DL Total Protein 7.5 GM/DL Albumin 3.5 GM/DL Calcium Level 8.3 MG/DL Alkaline Phosphatase 94 U/L Aspartate Amino Transf (AST/SGOT) 28 U/L Alanine Aminotransferase (ALT/SGPT) 34 U/L Total Bilirubin 0.4 MG/DL Sodium Level 133 MEQ/L Potassium Level 3.5 MEQ/L Chloride Level 100 MEQ/L Carbon Dioxide Level 24.3 MEQ/L Anion Gap 9 MEQ/L Estimat Glomerular Filtration Rate 106 ML/MIN Lactic Acid Level 0.8 mmol/L Lipase 131 U/L MDM Medical Decision Making Medical Screen Exam Complete: Yes Emergency Medical Condition: Yes Medical Record Reviewed: Yes Interpretation(s) Laboratory Tests Test 01/01/18 07:35 01/01/18 08:00 Urine Ketones 80 OR GREATER mg/dL (NEG) Urine Squamous Epithelial Cells > 8 /hpf (0-5) Urine Bacteria MOD /hpf (NONE) Mean Corpuscular Hemoglobin 25.8 PG (27.0-34.0) Mean Corpuscular Hemoglobin Concent 31.5 % (32.0-36.0) Monocytes % 16 % (0-8) Random Glucose 109 MG/DL (74-106) Calcium Level 8.3 MG/DL (8.5-10.1) Sodium Level 133 MEQ/L (136-145) Differential Diagnosis Gastritis versus gastroenteritis versus influenza versus dehydration versus metabolic issues versus pancreatitis Narrative Course Lab work did not show significant electrolyte abnormalities. There is no significant leukocytosis. CAT scan shows mild ileus, likely gastroenteritis. It was otherwise unremarkable for any acute intra-abdominal processes. Patient was given IV fluids and Zofran in the ER and on reevaluation at 10 AM is feeling improved. She had a fever and was given Tylenol in the ER. At this point, my plan would be to release her with follow-up to primary care doctor. Return for worsening in symptoms as necessary. The plan has been discussed with her and she states understanding. Diagnosis Primary Impression: Abdominal pain Additional Impression: Gastroenteritis Med/Other Pt SpecificInfo: Prescription(s) given Scripts Ondansetron Odt (Zofran Odt) 4 Mg Tab 4 MG SL Q6HR Y for Nausea/Vomiting, #7 TAB 0 Refills Prov: Kamran Valles MD 01/01/18 Disposition: 01 DISCHARGE HOME Condition: Stable Kamran Valles MD Jan 01, 2018 07:29
[2018-01-01] MEDS ORDERED: DICYCLOMINE HCL 20 MG/2 ML VIAL IM ONE (07:30)
[2018-01-01] MEDS ORDERED: ONDANSETRON HCL 4 MG/2 ML VIAL IVP ONE (07:30)
[2018-01-01 08:08] LABS: HEMATOCRIT 37.7 % (35.0-46.0); HEMOGLOBIN 11.9 GM/DL (11.6-15.3); MEAN CELL VOLUME 81.9 FL (80.0-100.0); MEAN CORPUSCULAR HEMOGLOBIN 25.8 PG (27.0-34.0); MEAN CORPUSCULAR HGB CONC 31.5 % (32.0-36.0); MEAN PLATELET VOLUME 7.8 FL (7.0-11.0); PLATELET COUNT 219 TH/MM3 (150-450); RED CELL DISTRIBUTION WIDTH 15.6 % (11.6-17.2); WHITE BLOOD COUNT 7.4 TH/MM3 (4.0-11.0)
[2018-01-01] MEDS: SODIUM CHLORIDE 0.9% FLUSH 10 ML FLUSH IV FLUSH PRN ×2 (08:14→10:36)
[2018-01-01 08:17] LABS: CHLORIDE 100 MEQ/L (98-107); SODIUM (NA) 133 MEQ/L (136-145)
[2018-01-01 08:17] LABS: BILIRUBIN, URINE NEG (NEG); BLOOD, URINE TRACE (NEG); GLUCOSE,URINE NEG (NEG); KETONE, URINE 80 OR GREATER mg/dL (NEG); NITRITE,URINE NEG (NEG); URINE LEUKOCYTE ESTERASE NEG (NEG)
[2018-01-01 08:18] LABS: URINE COLOR YELLOW (YELLW/STRAW)
[2018-01-01 08:20] LABS: CALCIUM 8.3 MG/DL (8.5-10.1)
[2018-01-01 08:21] LABS: ALBUMIN 3.5 GM/DL (3.4-5.0); BICARBONATE 24.3 MEQ/L (21.0-32.0); BLOOD UREA NITROGEN 8 MG/DL (7-18); GLUCOSE,RANDOM 109 MG/DL (74-106)
[2018-01-01 08:22] LABS: AMORPHOUS SEDIMENT, URINE MOD; BACTERIA, URINE MOD /hpf; SQUAMOUS EPITHELIAL CELL URINE > 8 /hpf (0-5); WBC, URINE 0-2 /hpf (0-5)
[2018-01-01 08:23] LABS: ALT (GPT) 34 U/L (10-53)
[2018-01-01 08:24] LABS: AST (GOT) 28 U/L (15-37); CREATININE 0.69 MG/DL (0.50-1.00); GLOMERULAR FILTRATION RATE 106 ML/MIN (>89)
[2018-01-01 08:25] LABS: TOTAL BILIRUBIN ADULT 0.4 MG/DL (0.2-1.0); TOTAL PROTEIN 7.5 GM/DL (6.4-8.2)
[2018-01-01 08:27] LABS: ALKALINE PHOSPHATASE 94 U/L (45-117)
[2018-01-01] MEDS ORDERED: ACETAMINOPHEN 500 MG CPLT PO ONE (08:45)
[2018-01-01 08:49] LABS: BANDS 1 % (0-6); LYMPHOCYTES 15 % (9-44); MONOCYTES 16 % (0-8); NEUTROPHIL # MANUAL DIFF 5.1 TH/MM3 (1.8-7.7); POLYS (SEG NEUTROPHILS) 68 % (16-70)
[2018-01-01] MEDS ORDERED: IOHEXOL 350 MG/ML 10 ML VIAL (for RAD DIAG) IVCONTRAST ONE (09:17)
--- NOTE | 2018-01-01 09:37 | RADRPT ---
EXAM DATE/TIME: 01/01/2018 09:07 [facility] COMPARISON: CT ABDOMEN & PELVIS W CONTRAST, September 26, 2015, 6:15. INDICATIONS : Lower abdominal pain, nausea, vomiting and diarrhea. IV CONTRAST: 85 cc Omnipaque 350 (iohexol) IV ORAL CONTRAST: No oral contrast ingested. RADIATION DOSE: 22.26 CTDIvol (mGy) MEDICAL HISTORY : Hypertension. Diabetes mellitus type 2. SURGICAL HISTORY : Hysterectomy. Tubal ligation.Appendectomy.Cholecystectomy. ENCOUNTER: Initial ACUITY: 2 days PAIN SCALE: 10/10 LOCATION: Bilateral lower quadrant TECHNIQUE: Volumetric scanning of the abdomen and pelvis was performed. Using automated exposure control and ad justment of the mA and/or kV according to patient size, radiation dose was kept as low as reasonably achievable to obtain optimal diagnostic quality images. DICOM format image data is available electro nically for review and comparison. FINDINGS: LOWER LUNGS: The visualized lower lungs are clear. LIVER: Homogeneous density without lesion. There is no dilation of the biliary tree. Status post cholecyste ctomy. There is mild hepatic steatosis. SPLEEN: Normal size without lesion. PANCREAS: Within normal limits. KIDNEYS: Normal in size and shape. There is no mass, stone or hydronephrosis. ADRENAL GLANDS: Within normal limits. VASCULAR: There is no aortic aneurysm. BOWEL/MESENTERY: There are several loops of nondilated air-containing small bowel several small air-fluid levels. The colon is decompressed. There is no free air or fluid. There is no inflammatory change. ABDOMINAL WALL: Within normal limits. RETROPERITONEUM: There is no lymphadenopathy. BLADDER: No wall thickening or mass. REPRODUCTIVE: Within normal limits. INGUINAL: There is no lymphadenopathy or hernia. MUSCULOSKELETAL: Within normal limits for patient age. Status post lumbar fusion. CONCLUSIO Mildly nonspecific, nonobstructive bowel gas pattern. This could represent a mild ileus or gastroente ritis. Mild hepatic steatosis. 1. Status post cholecystectomy. Ilan Mario MD on January 01, 2018 at 9:33 Board Certified Radiologist. This report was verified electronically.
[2018-01-01] MEDS ORDERED: ZOFR4TAB3 SL (10:03)
== END 2018-01-01 10:49 | disposition home or self-care (01) ==
LOC: PHED 06:42
DX: R10.30 Lower abdominal pain, unspecified (principal); K52.9 Noninfective gastroenteritis and colitis, unspecified; E11.9 Type 2 diabetes mellitus without complications; E78.00 Pure hypercholesterolemia, unspecified; I10 Essential (primary) hypertension; R82.71 Bacteriuria; Z79.4 Long term (current) use of insulin
CPT/HCPCS: 74177; 80053; 81001; 83605; 83690; 85007; 85027; 87040; 87077; 87086; 87186; 87804; 96361; 96372; 96374; 99285; J0500; J1642; J2405; J7030; Q9967

== ENCOUNTER → 2018-03-05 | Outpatient (CLI) | payer OTHER ==
[~2018-03-05] MED LIST changes: -PRED10 PO; -SULF10SU3 EACH EYE; +ZOFR4TAB3 SL
[2018-03-05 16:05] LABS: HEMATOCRIT 37.7 % (35.0-46.0); HEMOGLOBIN 12.4 GM/DL (11.6-15.3); MEAN CORPUSCULAR HEMOGLOBIN 27.2 PG (27.0-34.0); MEAN CORPUSCULAR HGB CONC 32.8 % (32.0-36.0); MEAN PLATELET VOLUME 7.5 FL (7.0-11.0); PLATELET COUNT 237 TH/MM3 (150-450); RED BLOOD COUNT 4.54 MIL/MM3 (4.00-5.30); RED CELL DISTRIBUTION WIDTH 16.5 % (11.6-17.2); WHITE BLOOD COUNT 8.1 TH/MM3 (4.0-11.0)
[2018-03-05 16:44] LABS: WESTERGREN SEDIMENTATION RATE 13 mm/hr (0-30)
[2018-03-05 17:21] LABS: ALBUMIN 3.9 GM/DL (3.4-5.0); AST (GOT) 23 U/L (15-37); BICARBONATE 26.7 MEQ/L (21.0-32.0); BLOOD UREA NITROGEN 9 MG/DL (7-18); C-REACTIVE PROTEIN 0.31 MG/DL (0.00-0.30); CALCIUM 9.2 MG/DL (8.5-10.1); CHLORIDE 105 MEQ/L (98-107); CREATININE 0.86 MG/DL (0.50-1.00); GLOMERULAR FILTRATION RATE 83 ML/MIN (>89); GLUCOSE,FASTING 139 MG/DL (74-99); SODIUM (NA) 139 MEQ/L (136-145)
[2018-03-05 17:22] LABS: ALT (GPT) 29 U/L (10-53)
[2018-03-05 17:25] LABS: ALKALINE PHOSPHATASE 79 U/L (45-117); TOTAL BILIRUBIN ADULT 0.3 MG/DL (0.2-1.0); TOTAL PROTEIN 7.8 GM/DL (6.4-8.2)
== END ==
LOC: CLAB 15:47
PROVIDERS: ATTEND Internal Medicine Rheumatology
DX: H20.13 Chronic iridocyclitis, bilateral (principal)
CPT/HCPCS: 36415; 80053; 85027; 85652; 86140

== ENCOUNTER → 2018-05-05 | Outpatient (CLI) | payer OTHER ==
[2018-05-05 08:47] LABS: CHOLESTEROL 127 MG/DL (120-200)
[2018-05-05 09:12] LABS: ALKALINE PHOSPHATASE 86 U/L (45-117); ALT (GPT) 24 U/L (10-53); CHOLESTEROL/ HDL RATIO 3.37 RATIO; HDL CHOLESTEROL 37.6 MG/DL (40.0-60.0); LDL CHOLESTEROL 69 MG/DL (0-99); TOTAL BILIRUBIN ADULT 0.3 MG/DL (0.2-1.0); TOTAL PROTEIN 7.4 GM/DL (6.4-8.2); TRIGLYCERIDES 104 MG/DL (42-150)
[2018-05-05 09:13] LABS: ALBUMIN 3.7 GM/DL (3.4-5.0); AST (GOT) 26 U/L (15-37); BICARBONATE 26.1 MEQ/L (21.0-32.0); BLOOD UREA NITROGEN 10 MG/DL (7-18); CALCIUM 9.1 MG/DL (8.5-10.1); CHLORIDE 106 MEQ/L (98-107); CREATININE 0.84 MG/DL (0.50-1.00); GLOMERULAR FILTRATION RATE 85 ML/MIN (>89); GLUCOSE,FASTING 60 MG/DL (74-99); SODIUM (NA) 141 MEQ/L (136-145)
== END ==
LOC: CLAB 07:35
PROVIDERS: ATTEND Family Medicine
DX: M79.671 Pain in right foot (principal); E78.2 Mixed hyperlipidemia; E53.8 Deficiency of other specified B group vitamins; M32.8 Other forms of systemic lupus erythematosus; H44.119 Panuveitis, unspecified eye; M32.9 Systemic lupus erythematosus, unspecified
CPT/HCPCS: 36415; 80053; 80061; 80299; 82607; 84550